=== PATIENT | male | born 1975 | race African-American/Black ===

== ENCOUNTER 2017-09-16 12:04 | Emergency (ER) | payer OTHER ==
[~2017-09-16] VITALS: Ht 182.9 cm; Wt 122.5 kg
[2017-09-16] MEDS ORDERED: IBUPROFEN 800800 M1 PO (15:04)
[2017-09-16] MEDS ORDERED: HYDROCODONE-AP1 EAC6 PO (15:04)
[2017-09-16] MEDS ORDERED: BACTRIM DS TAB1 EACH PO (15:04)
== END 2017-09-16 15:39 | disposition home or self-care (01) ==
LOC: ER 12:04
DX: L02.31 Cutaneous abscess of buttock (principal); I10 Essential (primary) hypertension; E11.9 Type 2 diabetes mellitus without complications; F17.210 Nicotine dependence, cigarettes, uncomplicated